=== PATIENT | male | born 1965 | race Caucasian/White ===

== ENCOUNTER 2021-12-28 11:08 | Emergency (ER) | payer OTHER ==
[~2021-12-28 11:08] MED LIST: AUGMENTIN 875-1 EACH PO; DULERA 200 MCG8.8 GM INH; FOLIC ACID1 MG PO; LIPITOR 10MG TA10 MG PO; PREDNISONE5 MG PO; RHEUMATREX2.5 MG PO; STATIN; ZPAK PO
[2021-12-28 12:39] LABS: BASOPHIL 0.3 % (0-2); EOSINOPHIL 0.2 % (0-5); HCT 41.3 % (42.0-52.0); HGB 14.2 g/dl (13.2-18.0); LYMPHOCYTE 15.3 % (15-48); MCH 32.8 pg (25.0-31.0); MCHC 34.4 g/dL (32.0-36.0); MCV 95.4 fL (78.0-100.0); MONOCYTE 5.8 % (0-12); MPV 11.1 fL (6.0-9.5); NEUTROPHIL 78.1 % (41-80); NRBC 0; PLT 137 K/uL (150-400); RBC 4.33 M/uL (4.70-6.00); RDW 12.1 % (11.5-14.0); WBC 10.4 K/uL (4.0-10.5)
[2021-12-28 12:53] LABS: ALBUMIN 3.3 g/dL (3.4-5.0); BUN/CREAT RATIO (CALC) 15.7 RATIO; CREATININE 1.02 mg/dL (0.67-1.17); GLOBULIN (CALCULATION) 3.2 g/dL; TOTAL PROTEIN 6.5 g/dL (6.4-8.2)
[2021-12-28 15:21] LABS: BILIRUBIN NEGATIVE (NEGATIVE); BLOOD TRACE-INTACT Ery/uL (NEGATIVE); CLARITY CLEAR (CLEAR); COLOR YELLOW (YELLOW); GLUCOSE (U) NORMAL (NORMAL); LEUKOCYTES NEGATIVE Leu/uL (NEGATIVE); NITRITE NEGATIVE (NEGATIVE); PROTEIN NEGATIVE (NEGATIVE); SPECIFIC GRAVITY <=1.005 (1.001-1.030); UROBILINOGEN 0.2 mg/dL (0.2-1.0)
[2021-12-28 15:27] LABS: BACTERIA TRACE; SQUAMOUS EPITHELIAL CELLS RARE; URINARY RBC RARE; URINARY WBC RARE
== END 2021-12-28 15:15 | disposition home or self-care (01) ==
LOC: FER 11:08
PROVIDERS: Nurse Practitioner Family
DX: B34.9 Viral infection, unspecified (principal); I10 Essential (primary) hypertension
CPT/HCPCS: 36415; 80053; 81001; 85025; J1885; J2405; J7030; Q9967